=== PATIENT | female | born 2000 | race American Indian/Alaskan Native ===

== ENCOUNTER 2020-09-26 03:14 | Emergency (ER) | payer SELFPAY ==
[2020-09-26 04:47] VITALS: BP 146/83
[2020-09-26 07:52] LABS: Bacteria,Urine 2+ /HPF (Negative); Bilirubin,Urine NEG (Negative); Blood,Urine MOD (Negative); Color,Urine Amber (Yellow); Protein,Urine <15 mg/dL mg/dL (Negative)
[2020-09-26 08:11] LABS: HCG Qualitative,Urine Negative (Negative)
--- NOTE | 2020-09-26 08:22 | Emergency Department Report ---
ED Female HPI - General Chief complaint: Abdominal Pain Stated complaint: FREQUENT URINATION Time Seen by Provider: 09/26/20 07:35 Source: patient Mode of arrival: Ambulatory Limitations: No Limitations - History of Present Illness Initial comments: 20-year-old -[place] female presents to the emergency room complaining of a 2-day history of urinary frequency and urgency and noticed that she had blood in her urine yesterday. Patient admits to dysuria and foul odor to her urine. Her last menstrual period was 09/13/2020. She denies any vaginal bleeding does report vaginal discharge which she reports is normal. Denies any pelvic pain back pain no fever no chills. MD Complaint: dysuria Onset/Timin -: days(s) Severity scale (0 -10): 0 Consistency: constant Improves with: none Worsens with: urination Are you Now?: No Last Menstrual Period: 09/13/20 EDC: 06/20/21 Associated Symptoms: denies other symptoms, dysuria, hematuria. denies: vaginal bleeding, nausea/vomiting, fever/chills - Related Data Previous Rx's Medication Instructions Recorded Last Taken Type Nitrofurantoin Duchesne/M-Cryst 100 mg PO Q12HR 7 Days #14 capsule 09/26/20 Unknown Rx [Macrobid CAP] Allergies Allergy/AdvReac Type Severity Reaction Status Date / Time No Known Allergies Allergy Unverified 09/26/20 08:21 ED Review of Systems ROS: Stated complaint: FREQUENT URINATION Other details as noted in HPI Comment: All other systems reviewed and negative ED Past Medical Hx - Social History Smoking Status: Never Smoker - Medications Home Medications: Home Medications Medication Instructions Recorded Confirmed Last Taken Type Nitrofurantoin Duchesne/M-Cryst 100 mg PO Q12HR 7 Days #14 capsule 09/26/20 Unknown Rx [Macrobid CAP] ED Physical Exam - General Limitations: No Limitations General appearance: alert, in no apparent distress - Head Head exam: Present: atraumatic, normocephalic - Eye Eye exam: Present: normal appearance - ENT ENT exam: Present: normal external ear exam - Neck Neck exam: Present: normal inspection, full ROM - Respiratory Respiratory exam: Absent: accessory muscle use - Cardiovascular Cardiovascular Exam: Present: regular rate - GI/Abdominal GI/Abdominal exam: Present: soft. Absent: distended, tenderness - Extremities Exam Extremities exam: Present: normal inspection, full ROM - Back Exam Back exam: Present: normal inspection - Neurological Exam Neurological exam: Present: alert, oriented X3, normal gait - Psychiatric Psychiatric exam: Present: normal affect, normal mood. Absent: depressed, agitated, anxious - Skin Skin exam: Present: warm, dry, intact, normal color. Absent: rash ED Course Vital Signs 09/26/20 04:43 Temperature 98.8 F Pulse Rate 69 Respiratory 14 Rate Blood Pressure 146/83 O2 Sat by Pulse 100 Oximetry ED Medical Decision Making - Medical Decision Making 20-year-old -[place] female presents to the emergency room complaining of a 2-day history of urinary frequency and urgency and noticed that she had blood in her urine yesterday. Patient admits to dysuria and foul odor to her urine. Her last menstrual period was 09/13/2020. She denies any vaginal bleeding does report vaginal discharge which she reports is normal. Denies any pelvic pain back pain no fever no chills. Urinalysis shows patient has positive nitrates elevated WBCs of 31 and leukoesterase small. Patient was treated for urinary tract infection with Macrobid 100 mg p.o. twice daily for 7 days dispense 14 with no refills. Patient is to follow-up with her primary care provider or [facility]. Critical care attestation.: If time is entered above; I have spent that time in minutes in the direct care of this critically ill patient, excluding procedure time. ED Disposition Clinical Impression: UTI (urinary tract infection) Disposition: TO HOME OR SELFCARE Is pt being admited?: No Does the pt Need Aspirin: No Condition: Stable Instructions: Abdominal Pain (ED), Urinary Tract Infection, Adult, [id number] Additional Instructions: Urinalysis positive for urinary tract infection. Complete your antibiotics increase your fluid intake avoid sugary drinks. Be sure to void after intercourse. Do not hold your urine for long periods of time. Prescriptions: Nitrofurantoin Duchesne/M-Cryst [Macrobid CAP] 100 mg PO Q12HR 7 Days #14 capsule Referrals: PRIMARY CARE, [Primary Care Provider] - 3-5 Days [facility] [Provider Group] - 3-5 Days Forms: Work/School Release Form(ED) Time of Disposition: 08:23
== END 2020-09-26 09:03 | disposition home or self-care (01) ==
LOC: ED 03:14
DX: N39.0 Urinary tract infection, site not specified (principal); Z79.899 Other long term (current) drug therapy
CPT/HCPCS: 81001; 81025; 87086